=== PATIENT | male | born 1965 | race Caucasian/White ===

== ENCOUNTER → 2020-10-29 | Outpatient (CLI) | payer OTHER ==
--- NOTE | 2020-10-31 01:12 | ECWPNPC ---
PATIENT NAME: LACEY TITUS : 1965 GENDER: MALE VISIT DATE: 10/29/2020 DISCHARGE DATE: 10/29/20 1337 VISIT LOCKED DATE TIME: PHYSICIAN: CLIF CALDERON RESOURCE: CLIF CALDERON REASON FOR APPOINTMENT 1. LOW BACK/HIPS HISTORY OF PRESENT ILLNESS GENERAL: HPI 55-YEAR-OLD MALE IN FOR INITIAL PAIN CONSULT REGARDING LOW BACK PAIN WITH RADICULOPATHY. HE RATES HIS PAIN CURRENTLY AT A 7 OUT OF 10 AND DESCRIBES IT ACHING, INTERMITTENT, AND SHARP. WHEN ASKED PATIENT DOES ADMIT TO A HISTORY OF TRAUMA TO HIS BACK SEVERAL YEARS AGO. PATIENT STATES THAT HE HAS HAD INTERMITTENT BACK PAIN FOR SEVERAL YEARS HOWEVER OVER THE PAST FEW MONTHS IT HAS INCREASED IN INTENSITY. HE DENIES INJECTIONS AND/OR MEDICATIONS THAT HAVE HELPED HIM IN THE PAST.. - - -. FALL RISK SCREENING: SCREENING NO FALLS REPORTED IN THE LAST YEAR . PAIN SCREENING: PATIENT HAS A COMPLAINT OF ACUTE OR CHRONIC PAIN :YES LOCATION OF PAIN:LOW BACK, LEFT HIP, RIGHT HIP INTENSITY OF PAIN (SCALE OF 1 TO 10):7 AVERAGE IS 7 WHAT DOES YOUR PAIN FEEL LIKE:ACHING, INTERMITTENT, SHARP, SORE DURATION:AWAKENS FROM SLEEP PAIN IS INCREASED BY:ACTIVITIES, PROLONGED STANDING PAIN IS DECREASED BY:SITTING, OTHERS ICY HOT NURSING NOTE: - - -. PAIN CENTER INTAKE QUESTIONS: DO YOU HAVE A HISTORY OF MRSA? :NO DO YOU TAKE A BLOOD THINNERS? :NO DO YOU HAVE ANY BLEEDING DISORDERS? :NO ANY NEW NUMBNESS OR WEAKNESS IN YOUR LEGS OR ARMS? :NO ANY PACEMAKER,DEFIBRILLATOR, OR DORSAL COLUMN STIMULATOR? :NO DO YOU HAVE ANY RASHES OR OPEN SORES? :NO ARE YOU ALLERGIC TO IV DYE? :NO ARE YOU DIABETIC? :YES TYPE II ANY NEW PROBLEMS WITH YOUR MEDICATIONS? :NO HAVE YOU RECEIVED A VACCINE IN THE PAST 30 DAYS? :NO SECOND COVID VACCINATION 08/02/2020 DO YOU PLAN TO RECEIVE A VACCINE IN THE NEXT 21 DAYS? :NO DO YOU NEED ANY PRESCRIPTION? :NO DO YOU TAKE ANY IMMUNOSUPPRESSIVE MEDICATIONS? :NO IS THERE A CHANCE YOU COULD BE ? :NO ARE YOU BREAST FEEDING? :NO CURRENT MEDICATIONS TAKING JANUVIA 100 MG TABLET 1 TABLET ORALLY ONCE A DAY TAKING ROSUVASTATIN CALCIUM 10 MG TABLET 1 TABLET ORALLY ONCE A DAY TAKING TRIAMTERENE-HCTZ 37.5-25 MG TABLET 1/2 TABLET IN THE MORNING ORALLY ONCE A DAY TAKING JARDIANCE 10 MG TABLET 1 TABLET ORALLY ONCE A DAY TAKING OLMESARTAN MEDOXOMIL 40 MG TABLET 1 TABLET ORALLY ONCE A DAY TAKING VASCEPA 1 GM CAPSULE 2 CAPSULES WITH MEALS ORALLY TWICE A DAY TAKING PREDNISONE 1 TAB ORAL , NOTES: NEEDED TAKING AZATHIOPRINE 50 MG TABLET DIRECTED ORALLY TWICE DAILY TAKING DICYCLOMINE HCL 10 MG/5ML SOLUTION 10 ML ORALLY THREE TIMES A DAY TAKING TRAMADOL HCL 50 MG TABLET 1 TABLET NEEDED ORALLY ONCE A DAY TAKING CITALOPRAM HYDROBROMIDE 10 MG TABLET 1 TABLET ORALLY ONCE A DAY TAKING FLUTICASONE PROPIONATE 50 MCG/ACT SUSPENSION 1 SPRAY IN EACH NOSTRIL NASALLY ONCE A DAY TAKING HUMIRA 40 MG/0.8ML PREFILLED SYRINGE KIT 0.8 ML SUBCUTANEOUS EVERY MONDAY PAST MEDICAL HISTORY BECHETS ALLERGIES NEURONTIN: RASH - ALLERGY SKELAXIN: RASH - ALLERGY VIOXX (FOR ALLERGY USE ONLY): RASH - ALLERGY FENTANYL: RASH - ALLERGY MIDAZOLAM HCL: RASH - ALLERGY HYDROCODONE BITARTRATE: RASH - ALLERGY SURGICAL HISTORY DENIES PAST SURGICAL HISTORY FAMILY HISTORY FATHER: MOTHER: 1 BROTHER(S) , 3 SISTER(S) - HEALTHY. 4 SON(S) - HEALTHY. SOCIAL HISTORY GENERAL: TOBACCO USE ARE YOU A:CURRENT SMOKER ARE YOU INTERESTED IN QUITTING?NOT READY TO QUIT COUNSELED THE PATIENT ON SMOKING EFFECTS, EDUCATION [id number]/24/2021 LATEX QUESTIONNAIRE LATEX ALLERGY : HAVE YOU EVER DEVELOPED ANY TYPE OF REACTION AFTER HANDLING LATEX PRODUCTS SUCH RUBBER GLOVES, CONDOMS, DIAPHRAGMS, BALLOONS, SOCKS, OR UNDERWEAR?NO LATEX ALLERGY : HAVE YOU EVER DEVELOPED ANY TYPE OF REACTION DURING OR AFTER DENTAL APPOINTMENT, VAGINAL/RECTAL EXAMINATION, SURGICAL PROCEDURE, OR ANY OTHER EXPOSURE?NO LATEX RISK : HAVE YOU EVER HAD ANY DIFFICULTY BREATHING OR HIVES AFTER EATING OR HANDLING ANY FRUITS, OR VEGETABLES; SUCH KIWI, BANANAS, STONE FRUITS, OR CHESTNUTSNO LATEX RISK : DO YOU HAVE A PREVIOUS PERSONAL HISTORY OF MORE THAN NINE SURGERIES, SPINA BIFIDA, OR REPEATED CATHERIZATIONS? NO LATEX RISK : ARE YOU FREQUENTLY EXPOSED TO LATEX PRODUCTS IN YOUR OCCUPATION?NO DATE ASKED : 10/29/2020 ALCOHOL USE: YES. OCCASIONAL. RECREATIONAL DRUG USE DRUG USE?NO LANGUAGE LANGUAGES SPOKEN:TUNISIAN EDUCATION LEVEL OF EDUCATION:NOT FINISHED HIGH SCHOOL LEARNING BARRIERS / SPECIAL NEEDS BARRIERS TO LEARNING?NO HEARING IMPAIRED?YES VISION IMPAIRED?YES :CORRECTIVE LENSES COGNITIVELY IMPAIRED?NO READINESS TO LEARN?YES LEARNING PREFERENCES?NO LEARNING CAPABILITIES PRESENT?YES EMOTIONAL BARRIERS?YES ANXIETY SPECIAL DEVICES?NO DIRECTOR OF PRIMARY CARE NEEDED?NO HOSPITALIZATION/MAJOR DIAGNOSTIC PROCEDURE DENIES PAST HOSPITALIZATION REVIEW OF SYSTEMS CONSTITUTIONAL: ANY RECENT FEVER NO . CHILLS NO . WEIGHT CHANGE OF UNKNOWN REASONS NO . MUSCULOSKELETAL: ANY UNUSUAL JOINT PAIN OR SWELLING NOT MENTIONED NO . SYSTEMIC LUPUS NO . ANY NEUROMUSCULAR DISORDER NOT MENTIONED NO . LYME DISEASE NO . GASTROENTEROLOGY: ANY NEW CHANGE IN BOWEL CONTROL? NO . HISTORY OF LIVER DISORDER NOT MENTIONED NO . HISTORY OF UNUSUAL ABDOMINAL PAIN OR CRAMPING NOT MENTIONED NO . NO CONSTIPATION. GENITOURINARY: ANY NEW CHANGE IN BLADDER CONTROL? NO . ANY RENAL/KIDNEY CONDITON NOT MENTIONED NO . NEUROLOGY: HISTORY OF TBI NOT MENTIONED NO . OTHER NEW NUMBNESS OR PAIN PATTERNS NOT MENTIONED NO . NEW ONSET DIZZINESS OR NEUROLOGICAL CHANGES NOT MENTIONED NO . HISTORY OF SEVERE HEADACHES NOT MENTIONED NO . HISTORY OF STROKE OR NEUROLOGICAL DISORDER NOT MENTIONED NO . CARDIOLOGY: HEART SURGERY NO . CONGESTIVE HEART FAILURE/FLUID OVERLOAD NOT MENTIONED NO . HISTORY OF CHEST PAIN,IRREGULAR HEART BEAT NOT MENTIONED NO . RESPIRATORY: SHORTNESS OF BREATH ON EXERTION, WHEEZES, UNUSUAL COUGH NOT MENTIONED NO . ENDOCRINOLOGY: ADRENAL GLAND OR THYROID DISORDERS NOT MENTIONED NO . UNUSUAL URINATION, DIZZINESS OR LETHARGY NOT MENTIONED NO . VITAL SIGNS WT 248.8 LBS, HT 72 IN, BMI 33.74 INDEX, BP 120/71 MM HG, HR 110 /MIN, RR 18 /MIN, TEMP 97.0 F, OXYGEN SAT % 96%, SAFE IN ENV? (Y/N) YES, NA INITIALS AW 1300, REVIEWED BY: KALIE SPEARS MA. EXAMINATION GENERAL EXAMINATION: GENERALNO ACUTE DISTRESS, WELL NOURISHED AND HYDRATED. PSYCHAPPROPRIATE MOOD AND AFFECT . LUNGS:CLEAR TO AUSCULTATION BILATERALLY, NO WHEEZES, RHONCHI, RALES. HEART:NO MURMURS, REGULAR RATE AND RHYTHM. BACK:POINT TENDER ALONG LUMBAR SPINE, POSITIVE MODIFIED SLR BILATERALLY. MUSCULOSKELETAL:NOTABLE WEAKNESS OF THE LEFT LOWER EXTREMITY, RIGHT LOWER EXTREMITY WITHIN NORMAL LIMITS. ASSESSMENTS LUMBAGO WITH SCIATICA - M54.40 (PRIMARY) TREATMENT LUMBAGO WITH SCIATICA [facility] MRI SPINE, L.S. WITHOUT [id number],NICOLE 10/29/2020 2:45:34 PM > MRI LUMBAR SPINE W/O CONTRAST APPROVED. AUTH # [id number] VALID FROM 10/29/20-12/13/20. NOTES: 55-YEAR-OLD MALE IN FOR INITIAL PAIN CONSULT REGARDING LOW BACK PAIN WITH RADICULOPATHY. GIVEN PRESENTING SYMPTOMS AND RESULTS OF PHYSICAL EXAMINATION RECOMMEND GETTING AN MRI FOR FURTHER EVALUATION PROCEDURES ARE POTENTIALLY INDICATED FOR THE TREATMENT OF PATIENT'S PAIN AND AN MRI WILL BE NEEDED TO DETERMINE WHICH PROCEDURES WOULD BE MOST EFFICACIOUS. PATIENT HAS EXPRESSED UNDERSTANDING OF AND WAS IN AGREEMENT WITH TREATMENT PLAN. GIVEN TIME ASKED QUESTIONS AND EXPRESS CONCERNS. PROCEDURE CODES FA211 ESTABILISHED PATIENT [facility] CHARGE DISPOSITION & COMMUNICATION FOLLOW UP POST IMAGING (REASON: MRI OF THE LUMBAR SPINE WITHOUT CONTRAST ) ELECTRONICALLY SIGNED BY MELISSA ROY ON 10/30/2020 AT 12:55 PM EDT DISCLAIMER : THIS IS A VISIT SUMMARY EXTRACTED FROM THE [employer] CHART. IT IS NOT A COPY OF THE [employer] PROGRESS NOTE. SHUKRI
== END ==
LOC: M PAIN 13:00
PROVIDERS: ATTEND Family Medicine
DX: M54.40 Lumbago with sciatica, unspecified side (principal); E11.9 Type 2 diabetes mellitus without complications; F17.200 Nicotine dependence, unspecified, uncomplicated; Z88.5 Allergy status to narcotic agent; Z88.8 Allergy status to other drugs, medicaments and biological substances; Z79.84 Long term (current) use of oral hypoglycemic drugs; Z79.899 Other long term (current) drug therapy

== ENCOUNTER → 2020-11-06 | Outpatient (CLI) | payer BC, OTHER ==
--- NOTE | 2020-11-06 22:18 | REPVR ---
PROCEDURE INFORMATION: Exam: MR Lumbar Spine Without Contrast Exam date and time: 11/06/2020 8:45 AM Age: 55 years old Clinical indication: Low back pain; Additional info: Lumbogo w/ sciatica TECHNIQUE: Imaging protocol: Multiplanar magnetic resonance images of the lumbar spine without intravenous contrast. COMPARISON: No relevant prior studies available. FINDINGS: Vertebral body heights are maintained. No abnormal marrow signal. No cord compression. No abnormal cord signal. Conus medullaris terminates at the L1 level. Disc space heights are preserved. No significant areas of canal or foraminal narrowing. Paravertebral soft tissues are unremarkable. IMPRESSION: No acute findings in the lumbar spine. Electronically signed by: Thad Mcconnell On 11/06/2020 22:17:30 PM
== END ==
LOC: M PLAIMG 07:58
PROVIDERS: ATTEND Family Medicine
DX: M54.40 Lumbago with sciatica, unspecified side (principal)

== ENCOUNTER → 2020-11-20 | Outpatient (CLI) | payer OTHER ==
--- NOTE | 2020-11-24 00:47 | ECWPNPC ---
PATIENT NAME: LACEY TITUS : 1965 GENDER: MALE VISIT DATE: 11/20/2020 DISCHARGE DATE: 11/20/20 1029 VISIT LOCKED DATE TIME: PHYSICIAN: CLIF CALDERON RESOURCE: CLIF CALDERON REASON FOR APPOINTMENT 1. MRI REVIEW HISTORY OF PRESENT ILLNESS DEPRESSION SCREENING: PHQ-2 (2015 EDITION) LITTLE INTEREST OR PLEASURE IN DOING THINGS?NOT AT ALL FEELING DOWN, DEPRESSED, OR HOPELESS?NOT AT ALL TOTAL SCORE0 GENERAL: HPI 55-YEAR-OLD MALE IN FOR CHRONIC PAIN FOLLOW-UP. PATIENT HAD MRI PERFORMED RECENTLY WHICH WILL BE REVIEWED WITH PATIENT TODAY. HE RATES HIS PAIN CURRENTLY AT A 5 OUT OF 10 AND DESCRIBES IT ACHING, CONTINUOUS, AND THROBBING.. -. FALL RISK SCREENING: SCREENING : NO FALLS REPORTED IN THE LAST YEAR. PAIN SCREENING: PATIENT HAS A COMPLAINT OF ACUTE OR CHRONIC PAIN :YES LOCATION OF PAIN:LOW BACK, LEG(S) INTENSITY OF PAIN (SCALE OF 1 TO 10):5 WHAT DOES YOUR PAIN FEEL LIKE:ACHING, CONTINOUS, THROBBING DURATION:CONTINOUS, CONSTANT, ALL DAY PAIN IS INCREASED BY: EVERYTHING PAIN IS DECREASED BY:OTHERS ICY HOT NURSING NOTE: -. PAIN CENTER INTAKE QUESTIONS: DO YOU HAVE A HISTORY OF MRSA? :NO DO YOU TAKE A BLOOD THINNERS? :NO DO YOU HAVE ANY BLEEDING DISORDERS? :NO ANY NEW NUMBNESS OR WEAKNESS IN YOUR LEGS OR ARMS? :NO ANY PACEMAKER,DEFIBRILLATOR, OR DORSAL COLUMN STIMULATOR? :NO DO YOU HAVE ANY RASHES OR OPEN SORES? :NO ARE YOU ALLERGIC TO IV DYE? :NO ARE YOU DIABETIC? :YES ANY NEW PROBLEMS WITH YOUR MEDICATIONS? :NO HAVE YOU RECEIVED A VACCINE IN THE PAST 30 DAYS? :NO DO YOU PLAN TO RECEIVE A VACCINE IN THE NEXT 21 DAYS? :NO DO YOU NEED ANY PRESCRIPTION? :NO DO YOU TAKE ANY IMMUNOSUPPRESSIVE MEDICATIONS? :YES PREDNISONE ON OCCASSION AND ON HUMIRA DO YOU HAVE ANY KIDNEY OR LIVER DISEASE? :NO IS THERE A CHANCE YOU COULD BE ? :NO ARE YOU BREAST FEEDING? :NO CURRENT MEDICATIONS TAKING JANUVIA 100 MG TABLET 1 TABLET ORALLY ONCE A DAY TAKING ROSUVASTATIN CALCIUM 10 MG TABLET 1 TABLET ORALLY ONCE A DAY TAKING TRIAMTERENE-HCTZ 37.5-25 MG TABLET 1/2 TABLET IN THE MORNING ORALLY ONCE A DAY TAKING JARDIANCE 10 MG TABLET 1 TABLET ORALLY ONCE A DAY TAKING OLMESARTAN MEDOXOMIL 40 MG TABLET 1 TABLET ORALLY ONCE A DAY TAKING VASCEPA 1 GM CAPSULE 2 CAPSULES WITH MEALS ORALLY TWICE A DAY TAKING PREDNISONE 1 TAB ORAL DIRECTED, NOTES: NEEDED TAKING AZATHIOPRINE 50 MG TABLET DIRECTED ORALLY TWICE DAILY TAKING DICYCLOMINE HCL 10 MG/5ML SOLUTION 10 ML ORALLY THREE TIMES A DAY TAKING TRAMADOL HCL 50 MG TABLET 1 TABLET NEEDED ORALLY ONCE A DAY TAKING CITALOPRAM HYDROBROMIDE 10 MG TABLET 1 TABLET ORALLY ONCE A DAY TAKING HUMIRA 40 MG/0.8ML PREFILLED SYRINGE KIT 0.8 ML SUBCUTANEOUS EVERY MONDAY NOT-TAKING FLUTICASONE PROPIONATE 50 MCG/ACT SUSPENSION 1 SPRAY IN EACH NOSTRIL NASALLY ONCE A DAY MEDICATION LIST REVIEWED AND RECONCILED WITH THE PATIENT PAST MEDICAL HISTORY BECHETS LOW BACK PAIN HYPERTENSION DM ALLERGIES NEURONTIN: RASH - ALLERGY SKELAXIN: RASH - ALLERGY VIOXX (FOR ALLERGY USE ONLY): RASH - ALLERGY FENTANYL: RASH - ALLERGY MIDAZOLAM HCL: RASH - ALLERGY HYDROCODONE BITARTRATE: RASH - ALLERGY SOCIAL HISTORY GENERAL: TOBACCO USE ARE YOU A:CURRENT SMOKER ARE YOU INTERESTED IN QUITTING?NOT READY TO QUIT COUNSELED THE PATIENT ON SMOKING EFFECTS, EDUCATION [id number]/24/2021 LATEX QUESTIONNAIRE LATEX ALLERGY : HAVE YOU EVER DEVELOPED ANY TYPE OF REACTION AFTER HANDLING LATEX PRODUCTS SUCH RUBBER GLOVES, CONDOMS, DIAPHRAGMS, BALLOONS, SOCKS, OR UNDERWEAR?NO LATEX ALLERGY : HAVE YOU EVER DEVELOPED ANY TYPE OF REACTION DURING OR AFTER DENTAL APPOINTMENT, VAGINAL/RECTAL EXAMINATION, SURGICAL PROCEDURE, OR ANY OTHER EXPOSURE?NO LATEX RISK : HAVE YOU EVER HAD ANY DIFFICULTY BREATHING OR HIVES AFTER EATING OR HANDLING ANY FRUITS, OR VEGETABLES; SUCH KIWI, BANANAS, STONE FRUITS, OR CHESTNUTSNO LATEX RISK : DO YOU HAVE A PREVIOUS PERSONAL HISTORY OF MORE THAN NINE SURGERIES, SPINA BIFIDA, OR REPEATED CATHERIZATIONS? NO LATEX RISK : ARE YOU FREQUENTLY EXPOSED TO LATEX PRODUCTS IN YOUR OCCUPATION?NO DATE ASKED : 10/29/2020 ALCOHOL USE: YES. OCCASIONAL. RECREATIONAL DRUG USE DRUG USE?NO LANGUAGE LANGUAGES SPOKEN:TAMAZIGHT EDUCATION LEVEL OF EDUCATION:NOT FINISHED HIGH SCHOOL LEARNING BARRIERS / SPECIAL NEEDS CHANGE FROM LAST VISIT?NO BARRIERS TO LEARNING?NO HEARING IMPAIRED?YES VISION IMPAIRED?YES :CORRECTIVE LENSES COGNITIVELY IMPAIRED?NO READINESS TO LEARN?YES LEARNING PREFERENCES?NO LEARNING CAPABILITIES PRESENT?YES EMOTIONAL BARRIERS?YES ANXIETY SPECIAL DEVICES?NO TRUCK SPOTTER NEEDED?NO REVIEW OF SYSTEMS CONSTITUTIONAL: ANY RECENT FEVER NO . CHILLS NO . WEIGHT CHANGE OF UNKNOWN REASONS NO . GASTROENTEROLOGY: NEW UNEXPLAINABLE CHANGES IN BOWEL CONTROL NO . CONSTIPATION NO . GENITOURINARY: ANY NEW CHANGE IN BLADDER CONTROL? NO . NEUROLOGY: NEW ONSET DIZZINESS OR NEUROLOGICAL CHANGES NOT MENTIONED NO . NEW NUMBNESS OR PAIN PATTERNS NOT MENTIONED AND PERTINENT TO TODAY'S VISIT NO . CARDIOLOGY: NEW CHEST PRESSURE NO . PATIENT DENIES NO . RESPIRATORY: UNEXPLAINABLE COUGH NO . NEW SHORTNESS OF BREATH NO . VITAL SIGNS WT 243.2 LBS, HT 72 IN, BMI 32.98 INDEX, BP 134/77 MM HG, HR 89 /MIN, RR 18 /MIN, TEMP 98.2 F, OXYGEN SAT % 98%, SAFE IN ENV? (Y/N) YES, NA INITIALS AW 0933, REVIEWED BY: Daniel SCHUMACHER RN. EXAMINATION GENERAL EXAMINATION: GENERALNO ACUTE DISTRESS, WELL NOURISHED AND HYDRATED. PSYCHAPPROPRIATE MOOD AND AFFECT . LUNGS:CLEAR TO AUSCULTATION BILATERALLY, NO WHEEZES, RHONCHI, RALES. HEART:NO MURMURS, REGULAR RATE AND RHYTHM. BACK:POINT TENDER BILATERAL LOW BACK, SURROUNDING SKIN SHOWS NO ERYTHEMA, ECCHYMOSIS, INCREASED WARMTH, AND/OR SKIN OPTIONS NOTED. BANDS OF RESTRICTIVE TISSUE NOTED OVER TRIGGER POINTS. ASSESSMENTS MYALGIA, OTHER SITE - M79.18 (PRIMARY) TREATMENT MYALGIA, OTHER SITE MED: PAIN NORCO TABLET 5MG/325MG ORALLY HYDROCODONE/ACETAMINOPHEN (ORDERED FOR 11/30/2020) MEDICATION: PAIN VALIUM TAB 5MG ORALLY (DIAZEPAM) (ORDERED FOR 11/30/2020) NOTES: 55-YEAR-OLD MALE IN FOR CHRONIC PAIN FOLLOW-UP. GIVEN PRESENTING SYMPTOMS AND RESULTS OF PHYSICAL EXAMINATION RECOMMEND BILATERAL LOW BACK TRIGGER POINT INJECTIONS WITH POSTPROCEDURAL FOLLOW-UP. MRI WAS REVIEWED WITH PATIENT TODAY. PATIENT HAS EXPRESSED UNDERSTANDING OF AND WAS IN AGREEMENT WITH TREATMENT PLAN. GIVEN TIME TO ASK QUESTIONS AND EXPRESS CONCERNS. CLINICAL NOTES: WENT OVER ENTIRE PROCEDURE WITH THE PATIENT INCLUDING HIS MEDICATIONS . PT INSTRUCTED NOT TO TAKE PREDNISONE AT ALL PRIOR TO PROCEDURE WELL WHEN SCHEDULED FOR PROCEDURE TO REQUEST A MONDAY APPT AND NOT INJECT HIS HUMIRA THAT DAY AND ASK THE DR AT APPT PT INQUIRED ABOUT HAVING A MONDAY APPT AND TOLD THE PATIENT TO DISCUSS WITH SCHEDULERS WHEN THEY CALL TO SCHEDULE. DR MORENO IS NOT HERE TODAY AND THIS IS HIS FIRST PROCEDURE. PROCEDURE CODES FA211 ESTABILISHED PATIENT [facility] CHARGE DISPOSITION & COMMUNICATION FOLLOW UP POST PROCEDURE (REASON: BILATERAL LOW BACK TRIGGER POINT INJECTIONS ) ELECTRONICALLY SIGNED BY MELISSA ROY ON 11/23/2020 AT 09:56 AM EDT DISCLAIMER : THIS IS A VISIT SUMMARY EXTRACTED FROM THE [employer] CHART. IT IS NOT A COPY OF THE [employer] PROGRESS NOTE. SHUKRI
== END ==
LOC: M PAIN 09:45
PROVIDERS: ATTEND Family Medicine
DX: M79.18 Myalgia, other site (principal); E11.9 Type 2 diabetes mellitus without complications; F17.200 Nicotine dependence, unspecified, uncomplicated; Z88.5 Allergy status to narcotic agent; Z88.8 Allergy status to other drugs, medicaments and biological substances; Z79.84 Long term (current) use of oral hypoglycemic drugs; Z79.899 Other long term (current) drug therapy

== ENCOUNTER → 2020-12-16 | Outpatient (CLI) | payer BC, OTHER | LOC: M LABSMTC 10:28 | PROVIDERS: ATTEND Anesthesiology | DX: Z20.822 Contact with and (suspected) exposure to COVID-19 (principal) ==

== ENCOUNTER → 2020-12-21 | Outpatient (CLI) | payer OTHER ==
[~2020-12-21] MED LIST: BUPIVACAINE HCL 0.25% 10ML VIAL As Ordered ONE; BUPIVACAINE HCL 0.25% 30ML VIAL As Ordered ONE; NORCO, ANEXSIA 5/325MG TABLET (HYDROcodone/ACETAMINOPHEN) As Ordered ONE; TRIAMCINOLONE ACETONIDE SUSP 40 MG/ML VIAL (J3301) As Ordered ONE; diazePAM 5MG TABLET As Ordered ONE
--- NOTE | 2020-12-27 23:14 | ECWPNPC ---
PATIENT NAME: LACEY TITUS : 1965 GENDER: MALE VISIT DATE: 12/21/2020 DISCHARGE DATE: 12/21/20 1014 VISIT LOCKED DATE TIME: PHYSICIAN: ALEXANDRA MORENO MD RESOURCE: ALEXANDRA MORENO MD REASON FOR APPOINTMENT 1. BILATERAL LOW BACK TRIGGER POINT INJECTIONS HISTORY OF PRESENT ILLNESS GENERAL: -. FALL RISK SCREENING: SCREENING : NO FALLS REPORTED IN THE LAST YEAR. PAIN SCREENING: PATIENT HAS A COMPLAINT OF ACUTE OR CHRONIC PAIN :YES LOCATION OF PAIN:LOW BACK, LEFT HIP, RIGHT HIP, KNEES INTENSITY OF PAIN (SCALE OF 1 TO 10):4 AVERAGE 5-6 WHAT DOES YOUR PAIN FEEL LIKE:ACHING, BURNING, CONTINOUS, SHARP, STABBING, TENDER, THROBBING, SHOOTING DURATION:CONTINOUS, CONSTANT, AWAKENS FROM SLEEP PAIN IS INCREASED BY:ACTIVITIES, PROLONGED STANDING, OTHERS PROLONGED SITTING SOMETIMES AGGREVATES IT PAIN IS DECREASED BY:OTHERS REST PAIN HAS INTERFERED WITH THE FOLLOWING: EVERYTHING NURSING NOTE: -. PAIN CENTER INTAKE QUESTIONS: DO YOU HAVE A HISTORY OF MRSA? :NO DO YOU TAKE A BLOOD THINNERS? :NO DO YOU HAVE ANY BLEEDING DISORDERS? :NO ANY NEW NUMBNESS OR WEAKNESS IN YOUR LEGS OR ARMS? :NO ANY PACEMAKER,DEFIBRILLATOR, OR DORSAL COLUMN STIMULATOR? :NO DO YOU HAVE ANY RASHES OR OPEN SORES? :NO ARE YOU ALLERGIC TO IV DYE? :NO ARE YOU DIABETIC? :YES FSBS 164 @0903 ANY NEW PROBLEMS WITH YOUR MEDICATIONS? :NO HAVE YOU RECEIVED A VACCINE IN THE PAST 30 DAYS? :NO DO YOU PLAN TO RECEIVE A VACCINE IN THE NEXT 21 DAYS? :NO DO YOU TAKE ANY IMMUNOSUPPRESSIVE MEDICATIONS? :YES [facility] LAST DOSE 12/14--DR. MORENO AWARE ANY HISTORY OF SEIZURES? :NO ANY HISTORY OF CARDIAC ISSUES OR EVENTS? :NO DO YOU HAVE ANY KIDNEY OR LIVER DISEASE? :NO DO YOU HAVE SLEEP APNEA? :YES BORDERLINE DO YOU WEAR A CPAP?NO ANY RECENT HEAD INJURY? :NO DO YOU HAVE ANY NEW INFECTIONS? :NO IS THERE A CHANCE YOU COULD BE ? :NO ARE YOU BREAST FEEDING? :NO WHEN DID YOU LAST EAT? : 12/20 1800 WHEN DID YOU LAST DRINK? : 12/21 0700 WHAT DID YOU LAST DRINK? : PEPSI ZERO, ALSO HAD COFFEE WITH CREAMER IN IT AT 0400-DR. MORENO AWARE NAME OF PERSON DRIVING YOU HOME? : YURIDIA DO YOU HAVE ANY OTHER QUESTIONS OR CONCERNS? : NONE CURRENT MEDICATIONS TAKING JANUVIA 100 MG TABLET 1 TABLET ORALLY ONCE A DAY, NOTES: 12/20 1799 TAKING ROSUVASTATIN CALCIUM 10 MG TABLET 1 TABLET ORALLY ONCE A DAY, NOTES: 12/20 699 TAKING TRIAMTERENE-HCTZ 37.5-25 MG TABLET 1/2 TABLET IN THE MORNING ORALLY ONCE A DAY, NOTES: 12/20 699 TAKING JARDIANCE 10 MG TABLET 1 TABLET ORALLY ONCE A DAY, NOTES: 12/20 1799 TAKING OLMESARTAN MEDOXOMIL 40 MG TABLET 1 TABLET ORALLY ONCE A DAY, NOTES: 12/20 1799 TAKING VASCEPA 1 GM CAPSULE 2 CAPSULES WITH MEALS ORALLY TWICE A DAY, NOTES: 12/20 1799 TAKING PREDNISONE 1 TAB ORAL DIRECTED, NOTES: NEEDED NONE RECENT TAKING AZATHIOPRINE 50 MG TABLET DIRECTED ORALLY TWICE DAILY, NOTES: 12/20 TAKING TRAMADOL HCL 50 MG TABLET 1 TABLET NEEDED ORALLY ONCE A DAY TAKING CITALOPRAM HYDROBROMIDE 10 MG TABLET 1 TABLET ORALLY ONCE A DAY, NOTES: 12/20 1799 TAKING HUMIRA 40 MG/0.8ML PREFILLED SYRINGE KIT 0.8 ML SUBCUTANEOUS EVERY MONDAY, NOTES: 12/13/20 NOT-TAKING DICYCLOMINE HCL 10 MG CAPSULE 10 ML ORALLY THREE TIMES A DAY NOT-TAKING FLUTICASONE PROPIONATE 50 MCG/ACT SUSPENSION 1 SPRAY IN EACH NOSTRIL NASALLY ONCE A DAY MEDICATION LIST REVIEWED AND RECONCILED WITH THE PATIENT PAST MEDICAL HISTORY BECHETS LOW BACK PAIN HYPERTENSION DM ALLERGIES NEURONTIN: RASH - ALLERGY SKELAXIN: RASH - ALLERGY VIOXX (FOR ALLERGY USE ONLY): RASH - ALLERGY FENTANYL: RASH - ALLERGY MIDAZOLAM HCL: RASH - ALLERGY HYDROCODONE BITARTRATE: RASH - ALLERGY SURGICAL HISTORY INGUINAL HERNIA REPAIR LEFT SHOULDER SURGERY X 2 APPENDECTOMHY CHOLECYSTECTOMY FAMILY HISTORY FATHER: MOTHER: 1 BROTHER(S) , 3 SISTER(S) - HEALTHY. 4 SON(S) - HEALTHY. SOCIAL HISTORY GENERAL: TOBACCO USE ARE YOU A:CURRENT SMOKER ARE YOU INTERESTED IN QUITTING?NOT READY TO QUIT COUNSELED THE PATIENT ON SMOKING EFFECTS, EDUCATION [id number]/2021 PATIENT COUNSELED ON THE DANGERS OF TOBACCO USE AND URGED TO QUIT:12/21/2020 LATEX QUESTIONNAIRE LATEX ALLERGY : HAVE YOU EVER DEVELOPED ANY TYPE OF REACTION AFTER HANDLING LATEX PRODUCTS SUCH RUBBER GLOVES, CONDOMS, DIAPHRAGMS, BALLOONS, SOCKS, OR UNDERWEAR?NO LATEX ALLERGY : HAVE YOU EVER DEVELOPED ANY TYPE OF REACTION DURING OR AFTER DENTAL APPOINTMENT, VAGINAL/RECTAL EXAMINATION, SURGICAL PROCEDURE, OR ANY OTHER EXPOSURE?NO LATEX RISK : HAVE YOU EVER HAD ANY DIFFICULTY BREATHING OR HIVES AFTER EATING OR HANDLING ANY FRUITS, OR VEGETABLES; SUCH KIWI, BANANAS, STONE FRUITS, OR CHESTNUTSNO LATEX RISK : DO YOU HAVE A PREVIOUS PERSONAL HISTORY OF MORE THAN NINE SURGERIES, SPINA BIFIDA, OR REPEATED CATHERIZATIONS? NO LATEX RISK : ARE YOU FREQUENTLY EXPOSED TO LATEX PRODUCTS IN YOUR OCCUPATION?NO DATE ASKED : 10/29/2020 ALCOHOL USE: YES. OCCASIONAL. RECREATIONAL DRUG USE DRUG USE?NO LANGUAGE LANGUAGES SPOKEN:AUSTRIAN EDUCATION LEVEL OF EDUCATION:NOT FINISHED HIGH SCHOOL LEARNING BARRIERS / SPECIAL NEEDS CHANGE FROM LAST VISIT?NO BARRIERS TO LEARNING?NO HEARING IMPAIRED?YES VISION IMPAIRED?YES :CORRECTIVE LENSES COGNITIVELY IMPAIRED?NO READINESS TO LEARN?YES LEARNING PREFERENCES?NO LEARNING CAPABILITIES PRESENT?YES EMOTIONAL BARRIERS?YES ANXIETY SPECIAL DEVICES?NO POCKET BUILDER NEEDED?NO DOMESTIC VIOLENCE DO YOU FEEL SAFE IN YOUR ENVIRONMENT?YES - HAS THE PATIENT BEEN EDUCATED REGARDING HIS/HER PLAN OF CARE?YES HAS THE PATIENT BEEN EDUCATED REGARDING PAIN, THE RISK FOR PAIN, THE IMPORTANCE OF EFFECTIVE PAIN MANAGEMENT, AND THE PAIN ASSESSMENT PROCESS?YES ADVANCE DIRECTIVE ADVANCE DIRECTIVE DISCUSSED WITH PATIENT:YES PT DOES NOT HAVE ANY ADVANCED DIRECTIVES AND DECLINES INFORMATION ON HCP AT THIS TIME HOSPITALIZATION/MAJOR DIAGNOSTIC PROCEDURE SURGERIES VITAL SIGNS WT 243 LBS, WT-KG 110.22 KG, HT 72 IN, BMI 32.95 INDEX, BP 130/72 MM HG, HR 67 /MIN, RR 18 /MIN, TEMP 97.3 F, OXYGEN SAT % 98%, BLOOD GLUCOSE LEVEL 164, SAFE IN ENV? (Y/N) Y, NA INITIALS TT, REVIEWED BY: YAMINI HAWK12/21/20 VS ALSO REVIEWED BY Lindsay SANCHEZ RN. EXAMINATION GENERAL EXAMINATION: THE PATIENT IS ALERT, ORIENTED TIMES THREE AND COOPERATIVE. LUNGS ARE CLEAR TO AUSCULTATION. HEART SHOWS REGULAR RHYTHM, NO MURMURS AND NO GALLOPS. ASSESSMENTS MYALGIA, OTHER SITE - M79.18 (PRIMARY) TREATMENT MYALGIA, OTHER SITE COMPLETION OF PROCEDURAL VISIT WHEN MEETS [id number],ANITA 12/21/2020 11:03:59 AM > CRITERIA MET AT 1015 MEDICATION: PAIN VALIUM TAB 5MG ORALLY ([id number],NICOLE 12/21/2020 9:20:07 AM > VERIFIED MARINA SANCHEZ 12/21/2020 9:21:21 AM > ADMINISTERED PROCEDURES PAIN NURSING RECORD PROCEDURE IN ROOM 0840, PHYSICIAN IN ROOM 0952, START 0955, FINISH 0959, PHYSICIAN OUT OF ROOM 0959, OUT OF ROOM 1015, ECG N/A, PATIENT SHIELDED N/A, SAFETY STRAP N/A, PREP ALCOHOL DR. MORENO, DRESSING TEGADERM Lindsay SANCHEZ RN LOC: MARINA SANCHEZ 12/21/2020 9:24:51 AM > 1. ALERT, ORIENTED RESP: DANIELMARINA 12/21/2020 9:25:01 AM > 1. REGULAR, NO DYSPNEA COLOR: DANIEL,MARINA 12/21/2020 9:25:04 AM > 1. PINK SKIN: DANIEL,MARINA 12/21/2020 9:25:07 AM > 1. WARM, DRY POSITION: MARINA SANCHEZ 12/21/2020 9:25:12 AM > 5. SITTING VITALS: MARINA SANCHEZ 12/21/2020 10:05:59 AM > 116/71,71,16,97% NOTES JANIE SANCHEZITA 12/21/2020 9:33:35 AM > NORCO HAD BEEN ORDERED FOR PRE-PROCEDRURE MED BUT PT ALLERGIC TO HYDROCODONE SO ORDER WAS D/C'D BY DR. MORENO COMPLETION OF PROCEDURE APPOINTMENT: POST PAIN 2, DRESSING SITE DRY AND INTACT, IV N/A, GAIT STEADY, TEACHING COMPLETED, PATIENT ACKNOWLEDGES UNDERSTANDING YES, PROCEDURE APPOINTMENT COMPLETED AT 1015 BY: Lindsay SANCHEZ RN PN TRIGGER POINT INJECTION WITH STEROIDS PRE PROCEDURE DIAGNOSIS 1. MYALGIA 2. PAIN AT BILATERAL LOW BACK AREA POST PROCEDURE DIAGNOSIS 1. MYALGIA 2. PAIN AT BILATERAL LOW BACK AREA PROCEDURE TRIGGER POINT INJECTION AT BILATERAL LOW BACK AREA SURGEON DR. ALEXANDRA MORENO [employer] NONE ANESTHESIA LOCAL PRE PROCEDURE NOTE THE PATIENT HAS A HISTORY OF CHRONIC PAIN AT THE RIGHT AND LEFT LOW BACK AREA. I EVALUATED THE PATIENT AND REVIEWED THE CHART. THERE IS EVIDENCE OF BANDS OF TISSUE WITH RESTRICTION OF MOVEMENT AND PRESENCE OF TRIGGER POINT AT THE RIGHT AND LEFT LOW BACK AREA. I WENT OVER THE RISKS, ALTERNATIVES, AND BENEFITS ASSOCIATED WITH THIS PROCEDURE. THE PATIENT WOULD LIKE TO PROCEED AND GIVE CONSENT TO PERFORMED THE PROCEDURE. THE PATIENT DENIES UNEXPLAINABLE WEIGHT LOSS, FEVER, CHILLS, OR NEW CHANGES IN URINARY OR BOWEL CONTROL. THE PATIENT COVID-19 NEGATIVE DESCRIPTION OF PROCEDURE THE PATIENT WAS BROUGHT TO THE PROCEDURE ROOM AND PLACED IN THE SITTING POSITION. THE AREA WAS CLEANED WITH ALCOHOL. THE PROCEDURE WAS DONE USING ASEPTIC STERILE TECHNIQUE. A TIMEOUT WAS PERFORMED WHERE THE CONSENTED SITE WAS VERIFIED WITH EVERYONE IN THE ROOM. USING A 25-GAUGE NEEDLE, TRIGGER POINTS WERE INJECTED AT THE RIGHT AND LEFT LOW BACK AREA WITH A TOTAL OF 40 ML OF BUPIVACAINE 0.25% AND KENALOG 40 MG. THE MEDICATIONS WERE VERIFIED WITH THE NURSE. THERE WAS NO EVIDENCE OF BLOOD OR PARESTHESIA DURING THE PROCEDURE. THE PATIENT WAS SENT TO THE RECOVERY ROOM. THE PATIENT WAS MOVING THE EXTREMITIES AND DOING WELL. THERE WERE NO COMPLICATIONS DURING THE PROCEDURE. ESTIMATED BLOOD LOSS WAS LESS THAN 5 ML POST PROCEDURE NOTE THE PROCEDURE DONE WAS DISCUSSED WITH THE PATIENT. THE PATIENT WILL BE SEEN IN A FOLLOW UP IN THE NEXT FEW WEEKS. I AM LOOKING FOR LONG LASTING PAIN RELIEF FOR THE PATIENT WITH THIS INTERVENTION. INSTRUCTIONS WERE GIVEN, QUESTIONS WERE ANSWERED, AND THE PATIENT EXPRESSED UNDERSTANDING AND AGREES WITH THE PLAN. I, CARLA GONZALEZ, DOCUMENTED THE ABOVE INFORMATION ACTING A SCRIBE FOR DR. MORENO. I HAVE REVIEWED THE ABOVE DOCUMENT, WRITTEN BY CARLA GONZALEZ, FICTION AND NONFICTION PROSE WRITER, AND I VERIFY THAT IT IS ACCURATE VISIT CODES PROCEDURE CODES 60477 INJ TRIGGER POINT 05/09 [facility] DISPOSITION & COMMUNICATION FOLLOW UP FOLLOW UP WITH MANAGER MEAT (REASON: POST TRIGGER POINT INJECTIONS BILATERAL LOW BACK) ELECTRONICALLY SIGNED BY ALEXANDRA MORENO MD, MD ON 12/27/2020 AT 08:41 PM EDT DISCLAIMER : THIS IS A VISIT SUMMARY EXTRACTED FROM THE [facility] CHART. IT IS NOT A COPY OF THE [facility] PROGRESS NOTE. SHUKRI
== END ==
LOC: M PAIN 08:30
PROVIDERS: ATTEND Anesthesiology
DX: M79.18 Myalgia, other site (principal); E11.9 Type 2 diabetes mellitus without complications; F17.200 Nicotine dependence, unspecified, uncomplicated; Z88.5 Allergy status to narcotic agent; Z88.8 Allergy status to other drugs, medicaments and biological substances; Z79.84 Long term (current) use of oral hypoglycemic drugs; Z79.899 Other long term (current) drug therapy
CPT/HCPCS: 20552; J3301

== ENCOUNTER → 2021-01-15 | Outpatient (CLI) | payer OTHER | LOC: M PAIN 10:45 | PROVIDERS: ATTEND Anesthesiology | DX: M79.18 Myalgia, other site (principal); M25.559 Pain in unspecified hip; M54.5 Low back pain; E11.9 Type 2 diabetes mellitus without complications; F17.200 Nicotine dependence, unspecified, uncomplicated; Z88.5 Allergy status to narcotic agent; Z88.8 Allergy status to other drugs, medicaments and biological substances; Z79.84 Long term (current) use of oral hypoglycemic drugs; Z79.899 Other long term (current) drug therapy ==

== ENCOUNTER → 2021-02-05 | Outpatient (CLI) | payer OTHER ==
--- NOTE | 2021-02-05 09:10 | REP ---
INDICATION: LOW BACK PAIN. COMPARISON: None. TECHNIQUE: Single limited view of the pelvis FINDINGS: Osseous structures are intact and normal. Bilateral hip joints are symmetric and age-appropriate. No overt arthritic or degenerative changes are appreciated. No evidence for acute or healed injury. IMPRESSION: Limited normal examination. <Electronically signed by Manuel Steel > 02/05/21 09
--- NOTE | 2021-02-05 09:14 | REP ---
INDICATION: LOW BACK PAIN. COMPARISON: None. TECHNIQUE: AP, lateral, and coned-down views of the lumbosacral spine. FINDINGS: Alignment and lordosis maintained without evidence for acute fracture/compression injury or subluxation. Moderate multilevel degenerative changes include osteophytosis, endplate sclerosis, and facet hypertrophy along with mild elements of disc space narrowing. IMPRESSION: Moderate multilevel degenerative spondylosis. <Electronically signed by Manuel Steel > 02/05/21 0927
== END ==
LOC: M SOG 08:48
PROVIDERS: ATTEND Orthopaedic Surgery
DX: M54.50 Low back pain, unspecified (principal)

== ENCOUNTER → 2021-02-12 | Outpatient (CLI) | payer BC, OTHER ==
--- NOTE | 2021-02-15 18:16 | REPVR ---
PROCEDURE INFORMATION: Exam: MR Lumbar Spine Without Contrast Exam date and time: 02/12/2021 10:52 AM Age: 55 years old Clinical indication: Low back pain; Additional info: Spondylosis w/radiculopathy TECHNIQUE: Imaging protocol: Multiplanar magnetic resonance images of the lumbar spine without intravenous contrast. COMPARISON: MRI-Spine, L.S. without con 11/06/2020 8:15 AM FINDINGS: Vertebral body heights are maintained. No abnormal marrow signal. No cord compression. No abnormal cord signal. Conus medullaris terminates at the L1 level. Paravertebral soft tissues are unremarkable. L1-L2: No significant canal or foraminal narrowing. L2-L3: No significant canal or foraminal narrowing. L3-L4: Broad-based disc bulge and facet hypertrophy cause mild bilateral foraminal narrowing. No significant canal narrowing. L4-L5: Broad-based disc bulge and facet hypertrophy cause mild left and qugu-[id number]-hfdyrjsl right foraminal narrowing. No significant canal narrowing. L5-S1: Broad-based disc bulge and facet hypertrophy cause mild left and aeun-bh-krybrkht right foraminal narrowing. No significant canal narrowing. IMPRESSION: Multilevel spondylotic changes of the lumbar spine, as detailed above. Electronically signed by: Thad Mcconnell On 02/15/2021 18:15:36 PM
== END ==
LOC: M PLAIMG 09:49
PROVIDERS: ATTEND Orthopaedic Surgery
DX: M47.26 Other spondylosis with radiculopathy, lumbar region (principal)

== ENCOUNTER 2023-01-09 05:29 | Emergency (ER) | payer BC, OTHER ==
[~2023-01-09] VITALS: Ht 180.3 cm; Wt 112.3 kg
[2023-01-09] MEDS ORDERED: diazePAM 10MG/2ML SYRINGE IV ONE (07:15)
[2023-01-09] MEDS ORDERED: KETOROLAC 30 MG/ML 1ML VIAL IV ONE (07:15)
[2023-01-09] MEDS ORDERED: ISOVUE-370 76% 100ML VIAL As Ordered ONE (07:45)
[2023-01-09] MEDS ORDERED: NAPR-837 PO (08:57)
[2023-01-09 09:17] VITALS: BP 125/64; TEMP 97.2; O2SAT 98
== END 2023-01-09 09:40 | disposition home or self-care (01) ==
LOC: M ED 05:29
DX: M54.2 Cervicalgia (principal); E11.9 Type 2 diabetes mellitus without complications; F41.9 Anxiety disorder, unspecified; I10 Essential (primary) hypertension; F17.200 Nicotine dependence, unspecified, uncomplicated; F10.10 Alcohol abuse, uncomplicated; Z88.5 Allergy status to narcotic agent; Z88.8 Allergy status to other drugs, medicaments and biological substances; Z79.1 Long term (current) use of non-steroidal anti-inflammatories (NSAID)
CPT/HCPCS: 70450; 70491; 80047; 96374; 99284; J1885; J3360; Q9967

== ENCOUNTER 2024-09-05 15:51 | Observation (INO) | payer BC, OTHER ==
[~2024-09-05] VITALS: Ht 180.3 cm; Wt 113.0 kg
[~2024-09-05 15:51] MED LIST changes: -BUPIVACAINE HCL 0.25% 10ML VIAL As Ordered ONE; -BUPIVACAINE HCL 0.25% 30ML VIAL As Ordered ONE; +NAPR-837 PO; -NORCO, ANEXSIA 5/325MG TABLET (HYDROcodone/ACETAMINOPHEN) As Ordered ONE; -TRIAMCINOLONE ACETONIDE SUSP 40 MG/ML VIAL (J3301) As Ordered ONE; -diazePAM 5MG TABLET As Ordered ONE
[2024-09-05 17:16] LABS: CK-MB VALUE MASS < 1.0 NG/ML (<3.6)
[2024-09-05 17:18] LABS: BLOOD UREA NITROGEN 16 MG/DL (9-23); CALCIUM LEVEL 7.4 MG/DL (8.5-10.1); CARBON DIOXIDE LEVEL 23 MMOL/L (20-31); CHLORIDE LEVEL 111 MMOL/L (98-107); CREATININE FOR GFR 1.14 MG/DL (0.70-1.30); GLOMERULAR FILTRATION RATE 74.6 (>56); GLUCOSE, FASTING 207 MG/DL (60-100); MAGNESIUM LEVEL 1.6 MG/DL (1.8-2.4); POTASSIUM SERUM 4.3 MMOL/L (3.5-5.1); SODIUM LEVEL 140 MMOL/L (136-145)
[2024-09-05 17:19] LABS: BASO # 0.1 10^3/uL (0.0-0.2); BASO % 0.5 % (0.0-1.0); EOS # 0.2 10^3/uL (0.0-0.5); EOS % 1.4 % (0.0-3.0); HEMATOCRIT 42.1 % (42.0-52.0); HEMOGLOBIN 13.9 g/dl (13.5-17.5); LYMPH # 2.7 10^3/uL (1.5-5.0); LYMPH % 25.7 % (24.0-44.0); MEAN CORPUSCULAR HEMOGLOBIN 29.5 pg (27.0-33.0); MEAN CORPUSCULAR VOLUME 89.4 fl (80.0-96.0); MONO # 1.1 10^3/uL (0.0-0.8); MONO % 10.6 % (2.0-8.0); NEUTROPHILS # 6.4 10^3/uL (1.5-8.5); NEUTROPHILS % 61.2 % (36.0-66.0); PLATELET COUNT, AUTOMATED 197 10^3/uL (150-450); RED BLOOD COUNT 4.71 10^6/uL (4.30-6.10); WHITE BLOOD COUNT 10.4 10^3/uL (4.0-10.0)
[2024-09-05 17:20] LABS: FREE T4 0.98 NG/DL (0.89-1.76); THYROID STIMULATING HORMONE 1.854 uIU/ML (0.55-4.78)
[2024-09-05 17:36] LABS: CPK CREATINE PHOSPHOKINASE 104 U/L (46-171); MB/CK RELATIVE INDEX 0.96 (< OR =4)
[2024-09-05] MEDS: MAG SULF 1GM/100ML (MAG RUN) 1 GM in IV 1 EA IV ONE (18:02)
[2024-09-05 18:50] LABS: CK-MB VALUE MASS < 1.0 NG/ML (<3.6)
[2024-09-05 18:57] LABS: CPK CREATINE PHOSPHOKINASE 119 U/L (46-171); MB/CK RELATIVE INDEX 0.84 (< OR =4)
[2024-09-05] MEDS ORDERED: SITA50TAB PO (21:08)
[2024-09-05] MEDS ORDERED: NATE120T4 PO (21:08)
[2024-09-05] MEDS ORDERED: ERGO500029 PO (21:08)
[2024-09-05] MEDS ORDERED: TAMS1CAP17 PO (21:08)
[2024-09-05] MEDS ORDERED: ROSU10TA61 PO (21:08)
[2024-09-05] MEDS ORDERED: PANT40TA29 PO (21:08)
[2024-09-05] MEDS ORDERED: OLME40TA PO (21:08)
[2024-09-05] MEDS ORDERED: SULF500T41 PO (21:08)
[2024-09-05] MEDS ORDERED: CITA10TA7 PO (21:08)
[2024-09-05] MEDS ORDERED: JARD1TAB3 PO (21:08)
[2024-09-05] MEDS ORDERED: AZAT50TA37 PO (21:08)
[2024-09-05] MEDS ORDERED: HUMI40IN2 INJ (21:08)
[2024-09-05] MEDS ORDERED: VITA100093 PO (21:13)
[2024-09-05] MEDS ORDERED: GENT28CA2 PO (21:13)
[2024-09-05] MEDS ORDERED: ASPI81TA26 PO (21:13)
[2024-09-05] MEDS ORDERED: DICY20TA20 PO (21:13)
[2024-09-05] MEDS ORDERED: HOME MED LIST COMPLETE! XX SCH (21:15)
[2024-09-05] MEDS: NS (Normal Saline) 0.9% 1,000 ML IV ONE (23:52)
[2024-09-06 00:10] LABS: PROCALCITONIN 0.05 ng/ml
[2024-09-06 00:17] LABS: APPEARANCE, URINE CLEAR (CLEAR); BACTERIA, URINE AUTO NEGATIVE (NEGATIVE); BILIRUBIN, URINE AUTO NEGATIVE (NEGATIVE); BLOOD, URINE BLOOD NEGATIVE (NEGATIVE); COLOR, URINE AMBER (YELLOW); GLUCOSE, URINE (UA) AUTO 3+ mg/dL (NEGATIVE); KETONE, URINE AUTO NEGATIVE (NEGATIVE); LEUKOCYTE ESTERASE, URINE AUTO NEGATIVE (NEGATIVE); MUCUS, URINE SMALL (NEGATIVE); NITRITE, URINE AUTO NEGATIVE (NEGATIVE); PROTEIN, URINE AUTO NEGATIVE (NEGATIVE); RBC, URINE AUTO 0 /HPF (0-3); SPECIFIC GRAVITY URINE AUTO 1.027 (1.002-1.035); SQUAMOUS EPITHELIAL CELL UR AU 0 /HPF (0-6); UROBILINOGEN, URINE AUTO 0.2 mg/dL (0.0-2.0); WBC, URINE AUTO 0 /HPF (0-3)
[2024-09-06] MEDS: CitaloPRAM (CeleXA) 10 MG TABLET PO SCH (00:52)
[2024-09-06] MEDS: PANTOPRAZOLE 40MG TAB (PROTONIX) PO SCH (00:52)
[2024-09-06] MEDS: NS (Normal Saline) 0.9% 1,000 ML IV SCH (00:53)
[2024-09-06 01:10] VITALS: BP 123/74; TEMP 97.5; O2SAT 97
[2024-09-06] MEDS: sulfaSALAzine 500 MG TABEC PO SCH (01:19)
[2024-09-06 03:30] VITALS: BP 124/74; TEMP 97.5; O2SAT 97
[2024-09-06 04:22] LABS: INR 0.96; PROTHROMBIN TIME 13.1 SECONDS (12.5-14.5)
[2024-09-06 05:22] LABS: HEMATOCRIT 41.2 % (42.0-52.0); HEMOGLOBIN 13.4 g/dl (13.5-17.5); MEAN CORPUSCULAR HEMOGLOBIN 28.9 pg (27.0-33.0); MEAN CORPUSCULAR HGB CONC 32.5 g/dl (32.0-36.5); MEAN CORPUSCULAR VOLUME 88.8 fl (80.0-96.0); PLATELET COUNT, AUTOMATED 159 10^3/uL (150-450); RED BLOOD COUNT 4.64 10^6/uL (4.30-6.10); WHITE BLOOD COUNT 7.8 10^3/uL (4.0-10.0)
[2024-09-06 06:05] LABS: BLOOD UREA NITROGEN 15 MG/DL (9-23); CARBON DIOXIDE LEVEL 25 MMOL/L (20-31); CHLORIDE LEVEL 110 MMOL/L (98-107); CREATININE FOR GFR 0.87 MG/DL (0.70-1.30); GLOMERULAR FILTRATION RATE > 90.0 (>56); GLUCOSE, FASTING 141 MG/DL (60-100); MAGNESIUM LEVEL 1.8 MG/DL (1.8-2.4); POTASSIUM SERUM 4.5 MMOL/L (3.5-5.1); SODIUM LEVEL 140 MMOL/L (136-145)
[2024-09-06] MEDS: ENOXAPARIN 40MG/0.4ML SYRINGE (J1650 PER 10MG) SC SCH (09:09)
[2024-09-06] MEDS: VITAMIN D 1,000 INTERNATIONAL UNITS TABLET PO SCH (09:09)
[2024-09-06] MEDS: ROSUVASTATIN 10 MG TAB (CRESTOR) PO SCH (09:09)
[2024-09-06] MEDS: ASPIRIN 81MG ENTERIC TABLET PO SCH (09:09)
[2024-09-06 12:00] VITALS: BP 138/76; TEMP 97.3; O2SAT 96
== END 2024-09-06 13:46 | disposition home or self-care (01) ==
LOC: EDBD 15:51 → M ED 15:51 → M ED INP 15:52 → M MSPAV 09-06 01:20
PROVIDERS: ADMIT Student in an Organized Health Care Education/Training Program; ATTEND Internal Medicine
DX: R42 Dizziness and giddiness (principal); H53.8 Other visual disturbances; Z86.73 Personal history of transient ischemic attack (TIA), and cerebral infarction without residual deficits; E78.5 Hyperlipidemia, unspecified; I10 Essential (primary) hypertension; E11.9 Type 2 diabetes mellitus without complications; K51.90 Ulcerative colitis, unspecified, without complications; M35.2 Behcet's disease; F17.210 Nicotine dependence, cigarettes, uncomplicated; F39 Unspecified mood [affective] disorder; K21.9 Gastro-esophageal reflux disease without esophagitis; N39.41 Urge incontinence; E55.9 Vitamin D deficiency, unspecified; Z79.82 Long term (current) use of aspirin; Z79.899 Other long term (current) drug therapy
CPT/HCPCS: 36415; 70450; 70551; 71045; 80047; 80048; 81001; 82550; 82553; 83605; 83735; 84145; 84439; 84443; 84484; 85025; 85027; 85610; 87040; 87486; 87581; 87633; 87798; 93005; 93041; 93306; 94760; 96360; 96361; 96372; 97161; 99285; J1650; J3475

== ENCOUNTER 2025-02-25 18:24 | Emergency (ER) | payer BC, OTHER ==
[~2025-02-25] VITALS: Ht 182.9 cm; Wt 104.4 kg
[~2025-02-25 18:24] MED LIST changes: +ASPI81TA26 PO; +AZAT50TA37 PO; +CITA10TA7 PO; +DICY20TA20 PO; +ERGO500029 PO; +GENT28CA2 PO; +HUMI40IN2 INJ; +JARD1TAB3 PO; +NATE120T4 PO; +OLME40TA PO; +PANT40TA29 PO; +ROSU10TA61 PO; +SITA50TAB PO; +SULF500T41 PO; +TAMS1CAP17 PO; +VITA100093 PO
[2025-02-25 19:04] LABS: BASO # 0.1 10^3/uL (0.0-0.2); BASO % 0.6 % (0.0-1.0); EOS # 0.2 10^3/uL (0.0-0.5); EOS % 1.6 % (0.0-3.0); LYMPH # 2.6 10^3/uL (1.5-5.0); LYMPH % 24.7 % (24.0-44.0); MONO # 1.3 10^3/uL (0.0-0.8); MONO % 11.9 % (2.0-8.0); NEUTROPHILS # 6.4 10^3/uL (1.5-8.5); NEUTROPHILS % 60.5 % (36.0-66.0); PLATELET COUNT, AUTOMATED 219 10^3/uL (150-450)
[2025-02-25 19:23] LABS: KETONE, URINE AUTO RFX NEGATIVE (NEGATIVE); LEUKOCYTE ESTERASE UR AUTO RFX NEGATIVE (NEGATIVE); MUCUS, URINE RFX SMALL (NEGATIVE); NITRITE, URINE AUTO RFX NEGATIVE (NEGATIVE); RBC, URINE AUTO RFX 0 /HPF (0-3); SQUAM EPITHELIAL CELL UR AURFX 0 /HPF (0-6); WBC, URINE AUTO RFX 1 /HPF (0-3)
[2025-02-25 19:29] LABS: ALT/SGPT 32 U/L (7.0-40); AST/SGOT 24 U/L (<34); CALCIUM LEVEL 9.8 MG/DL (8.5-10.1); CARBON DIOXIDE LEVEL 25 MMOL/L (20-31); CHLORIDE LEVEL 100 MMOL/L (98-107); CREATININE FOR GFR 1.04 MG/DL (0.70-1.30); GLOMERULAR FILTRATION RATE 82.7 (>56); POTASSIUM SERUM 4.2 MMOL/L (3.5-5.1); SODIUM LEVEL 135 MMOL/L (136-145)
[2025-02-25] MEDS: ACETAMINOPHEN *IV* 1,000 MG in IV 1 EA IV ONE (20:44)
[2025-02-25] MEDS ORDERED: ISOVUE-370 76% 100 ML VIAL As Ordered ONE (20:52)
[2025-02-25] MEDS ORDERED: SUCR1TA PO (22:17)
[2025-02-25] MEDS ORDERED: FAMO40TA3 PO (22:17)
[2025-02-25] MEDS: MAALOX 30 ML SUSP *UDC PO ONE (22:23)
[2025-02-25] MEDS: SUCRALFATE SUSP 1GM/10ML UD PO ONE (22:23)
[2025-02-25] MEDS: LIDOCAINE VISCOUS 2% SOLN 15 ML UDC PO ONE (22:23)
[2025-02-25 22:29] VITALS: BP 122/74; TEMP 97; O2SAT 99
== END 2025-02-25 22:31 | disposition home or self-care (01) ==
LOC: M ED 18:24
DX: R10.9 Unspecified abdominal pain (principal); I25.84 Coronary atherosclerosis due to calcified coronary lesion; N28.1 Cyst of kidney, acquired; K76.0 Fatty (change of) liver, not elsewhere classified; I31.39 Other pericardial effusion (noninflammatory); E78.5 Hyperlipidemia, unspecified; I10 Essential (primary) hypertension; K21.9 Gastro-esophageal reflux disease without esophagitis; E11.9 Type 2 diabetes mellitus without complications; Z79.82 Long term (current) use of aspirin; Z79.899 Other long term (current) drug therapy; Z88.5 Allergy status to narcotic agent; Z88.8 Allergy status to other drugs, medicaments and biological substances; Z90.49 Acquired absence of other specified parts of digestive tract
CPT/HCPCS: 74177; 80048; 80076; 81001; 83690; 85025; 96365; 96366; 99284; J0131; Q9967